=== PATIENT | female | born 1965 | race Caucasian/White ===

== ENCOUNTER → 2016-12-12 | Outpatient (CLI) | payer OTHER ==
--- NOTE | 2016-12-12 18:04 | XR ---
EXAMINATION TYPE: XR lumbar spine with bend/flex DATE OF EXAM: 12/12/2016 5:58 PM COMPARISON: 02/21/2016 HISTORY: Back pain TECHNIQUE: 7 views FINDINGS: There is a mild lumbar levoscoliosis. There are rods and screws fusing posteriorly the lumb ar spine at L4-5. There is a L4-5 disc prosthesis. There is narrowing at L4-5 and L5-S1 disc space. T here is also mild narrowing in the other lumbar disc spaces. There is no compression fracture. The sa croiliac joints appear normal. IMPRESSION: No fracture. There is a lumbar levoscoliosis that is worse than last exam. Multilevel spondylosis.
== END | disposition home or self-care (01) ==
LOC: RADXRMAIN 17:07
PROVIDERS: ATTEND Neurological Surgery
DX: M47.816 Spondylosis without myelopathy or radiculopathy, lumbar region (principal); M41.86 Other forms of scoliosis, lumbar region
CPT/HCPCS: 72114

== ENCOUNTER → 2017-01-23 | Outpatient (CLI) | payer OTHER ==
--- NOTE | 2017-01-23 15:11 | CT ---
EXAMINATION TYPE: CT chest wo con DATE OF EXAM: 01/23/2017 2:56 PM COMPARISON: 07/07/2016 and 03/05/2016 HISTORY: 51-year-old female has no complaints at time of study. Follow up study for known lung nodul e. Abnormal chest x-ray. TECHNIQUE: Contiguous axial scanning of the chest without IV contrast. Coronal and sagittal reconstru ctions performed. CT DLP: 598 mGycm Automated exposure control for dose reduction was used. FINDINGS: Heart is normal size with trace anterior pericardial thickening/fluid. Minimal coronary vessel calcif ications are present. The aorta is normal caliber with conventional arch vessel branching anatomy and minimal atherosclerot ic arch calcifications. No thoracic lymphadenopathy. Anterior mediastinal soft tissue measures 2.9 cm, unchanged from 03/05/2016 stability suggests a benig n etiology such as thymic hyperplasia. There is mild centrilobular emphysema without consolidation or pleural effusion. A 7 mm posterior left midlung pulmonary nodule within the lower lobe remains unchanged from 03/05/2016 . Visualized upper abdomen shows no gross abnormality. No osseous destructive process. IMPRESSION: 1. COPD WITH MILD EMPHYSEMA. 2. A 7 MM POSTERIOR LEFT MIDLUNG PULMONARY NODULE IS STABLE FROM 03/05/2016. ADDITIONAL ONE-YEAR FOLLO W-UP CAN DOCUMENT 2 YEARS OF STABILITY SUPPORTING A BENIGN ETIOLOGY. 3. STABLE 2.9 CM SOFT TISSUE IN THE ANTERIOR MEDIASTINUM. STABILITY SUGGESTS A BENIGN PROCESS SUCH THYMIC HYPERPLASIA. CLINICALLY CORRELATE.
== END | disposition home or self-care (01) ==
LOC: RADCTMAIN 14:36
PROVIDERS: ATTEND Internal Medicine Critical Care Medicine
DX: R91.1 Solitary pulmonary nodule (principal); J43.9 Emphysema, unspecified
CPT/HCPCS: 71250

== ENCOUNTER → 2017-07-23 | Outpatient (CLI) | payer OTHER ==
--- NOTE | 2017-07-24 08:23 | CT ---
EXAMINATION TYPE: CT lumbar spine wo con DATE OF EXAM: 07/23/2017 COMPARISON: NONE HISTORY: Lower back pain with bilateral leg numbness. CT DLP: 964.8 mGycm Automated exposure control for dose reduction was used. FINDINGS: There are 5 lumbar type vertebra identified. Lumbar spine shows a levoconvex scoliosis centered at L3 level. Straightening of spine is seen on sagittal images. No acute fracture dislocation is seen. The re is posterior fusion hardware seen bilaterally at L4-L5 level. There is artificial disc material at L4-L5 level. There is disc space narrowing which is advanced left aspect with sclerosis and left lat eral moderate spurring and vacuum disc phenomenon at the L5-S1 level. There is mild to moderate disc space narrowing involving the right L3-L4 level with mild right lateral spurring. Vertebral body heig hts and disc space heights otherwise are fairly well-maintained with mild to moderate anterior spurri ng L2-L3 level seen. Spinal canal is grossly preserved on sagittal images. Review of axial images shows the T12-L1 and L1-L2 levels to appear within normal limits. Axial images at L2-L3 level show mild facet degenerative changes bilaterally. There is mild broad dis c bulge. There is mild effacement of the anterior thecal sac. Bilateral neural foramina are patent. Axial images at L3-L4 level show moderate facet degenerative changes bilaterally. There is broad-base d disc bulge mildly effacing anterior thecal sac. There is mild right greater than left anterior infe rior neural foraminal narrowing at this level identified. Axial images at L4-L5 level show left-sided laminectomy defect. There is posterior fusion hardware an d artificial disc material identified. Spinal canal is grossly preserved, there is streak artifact fr om material noted making evaluation suboptimal. Neural foramina are felt grossly patent on sagittal i mages. Axial images at L5-S1 level show moderate facet degenerative changes bilaterally. There is broad disc bulge minimally effacing anterior thecal sac. There is left-sided spur disc complex causing moderate left-sided neural foraminal narrowing with encroachment on left L5 nerve felt present seen best on s agittal image 35. The right-sided neural foramen is patent. There is asymmetric slightly larger lobulated left kidney. There is calcification along course of spl enic artery. There is mild to moderate calcified plaque in the distal abdominal aorta which is somewh at small caliber distally with more moderate to severe calcified plaque extending into right common i liac artery. IMPRESSION: POSTSURGICAL CHANGE L4-L5 LEVEL. THERE IS LEVOCONVEX SCOLIOTIC CURVATURE. THERE IS MULTIL EVEL DEGENERATIVE CHANGE PRESENT DETAILED ABOVE WITH ATTENTION TO L5-S1 LEVEL THERE APPEARS TO BE FORAMINAL SPUR DISC COMPLEX EFFACING LEFT L5 NERVE. CLINICAL CORRELATION ADVISED.
== END | disposition home or self-care (01) ==
LOC: RADCTMAIN 16:00
PROVIDERS: ATTEND Psychiatry & Neurology Neurology
DX: M41.86 Other forms of scoliosis, lumbar region (principal); M47.817 Spondylosis without myelopathy or radiculopathy, lumbosacral region; Z91.041 Radiographic dye allergy status
CPT/HCPCS: 72131

== ENCOUNTER → 2017-08-25 | Outpatient (CLI) | payer OTHER ==
--- NOTE | 2017-08-25 15:36 | US ---
EXAMINATION TYPE: US kidneys/renal and bladder DATE OF EXAM: 08/25/2017 COMPARISON: CT lumbar spine July 23, 2017 CLINICAL HISTORY: R93.7 Abn findings on diagnostic imaging. Recent abnormal CT results EXAM MEASUREMENTS: Right Kidney: 10.3 x 4.7 x 5.2 cm Left Kidney: 12.2 x 4.7 x 4.0 cm Right Kidney: no hydro or masses seen, inferior pole limited by overlying bowel gas Left Kidney: measuring larger than right kidney, lobulated contour, no hydro or masses seen Bladder: wnl Bilateral Jets seen: yes There is no evidence for hydronephrosis at this point in time. No nephrolithiasis is seen. No jihan s are identified. The urinary bladder is anechoic. Bilateral ureteral jets are seen. IMPRESSION: Asymmetric increased size to left kidney is redemonstrated. Renal sizes however are within normal morin its bilaterally.
== END ==
LOC: RADUSWWP 14:49
PROVIDERS: ATTEND Family Medicine
DX: R93.7 Abnormal findings on diagnostic imaging of other parts of musculoskeletal system (principal)
CPT/HCPCS: 76770

== ENCOUNTER → 2017-09-22 | Outpatient (CLI) | payer OTHER ==
--- NOTE | 2017-09-22 14:16 | WWHP ---
[facility] - HISTORY AND PHYSICAL DATE OF SERVICE: 09/22/2017 CHIEF COMPLAINT: The patient is here for her routine gynecologic exam and mammogram. HPI: This is a 52-year-old G6, P5-0-1-5 with an LMP of 2011. The patient is without gynecologic complaints and denies any postmenopausal bleeding. PAST MEDICAL HISTORY: Chronic back problems, chronic hypertension, elevated cholesterol. MEDICATIONS: 1. Amlodipine 10 mg daily. 2. Lisinopril 10 mg daily. 3. Atorvastatin 10 mg daily. 4. Gabapentin 300 mg t.i.d. 5. Zyban 75 mg b.i.d. 6. Ibuprofen 800 mg t.i.d. p.r.n. 7. [place] 10 mg b.i.d. p.r.n. ALLERGIES: To IVP IODINE which caused hives. PAST SURGICAL HISTORY: Left breast biopsy in 1978, left breast aspiration in the past, colonoscopy in 2015, and a polyp was removed which was benign and back fusion surgery in 2015. PAST [employer] RE[employer] PERSON HISTORY: She has no history of STDs and has been menopausal since 2011. SOCIAL HISTORY: She quit smoking but did restart again this year and has been smoking about a 1/2 pack of cigarettes per day. She has about 18 alcohol-containing drinks per week and occasionally uses marijuana. She denies any other drug use. She has been with her boyfriend since 2011 and does live with him. She is currently unemployed. FAMILY HISTORY: Brother had lung cancer. Father had an GA. REVIEW OF SYSTEMS: She has gained about 40 pounds since last year. She denies cardiac or GI problems. RESPIRATORY: She states she can get slightly short of breath with exertion and she has had a workup for this. PHYSICAL EXAM: Blood pressure 153/87, height 5 feet 6 inches, weight 204 pounds. BMI 33. Temperature 97.1, pulse 71. This is a well-developed, well-nourished, white female, who is alert and oriented x3, in no acute distress. HEENT is within normal limits. NECK: Supple without mass or thyromegaly. CHEST AND LUNGS: Clear to auscultation. HEART: Regular rate and rhythm. Breasts are without mass or discharge. Axillary exam is negative for adenopathy. BACK: Negative for CVA tenderness. ABDOMEN: Soft, nontender, without palpable masses. PELVIC EXAM: External genitalia reveals mild atrophy without lesions. Cervix and vagina reveals mild atrophy without lesions. There is no evidence of prolapse. The uterus is mid position, nongravid size and nontender. There are no palpable adnexal masses or tenderness. Rectovaginal exam is negative for mass or tenderness and is negative for occult blood. EXTREMITIES: Nontender. IMPRESSION: 1. A 52-year-old menopausal female with normal gynecologic exam. 2. Elevated blood pressure with history of chronic hypertension. PLAN: 1. Pap smear was deferred since she had a normal one last year. 2. Self breast examination was discussed. 3. Mammogram will be done today. 4. We have discussed her elevated blood pressure. I have recommended she check her own blood pressure at home since she does have a blood pressure cuff and I have recommended she follow with Dr. Whitney for her blood pressure elevations. 5. Osteoporosis prevention was discussed. 6. She will return in 1 year. MMODL / IJN: [id number] /
--- NOTE | 2017-09-24 08:03 | MM ---
Reason for exam: screening (asymptomatic). Last mammogram was performed 11 months ago. History: Patient is postmenopausal. Benign US breast aspiration single RT of the right breast, March 21, 2016. Physical Findings: A clinical breast exam by your physician is recommended on an annual basis and results should be correlated with mammographic findings. MG Screening Mammo w CAD Bilateral CC and MLO view(s) were taken. Prior study comparison: October 17, 2016, right breast MG diagnostic mammo RT w CAD. March 11, 2016, right breast MG work up mamm w CAD RT. There are scattered fibroglandular densities. Stable nodule upper outer right breast. No significant changes when compared with prior studies. ASSESSMENT: Benign, BI-RAD 2 RECOMMENDATION: Routine screening mammogram of both breasts in 1 year.
== END | disposition home or self-care (01) ==
LOC: WWCWWP 11:07
PROVIDERS: ATTEND Obstetrics & Gynecology
DX: Z12.31 Encounter for screening mammogram for malignant neoplasm of breast (principal)

== ENCOUNTER → 2018-02-03 | Outpatient (CLI) | payer OTHER ==
--- NOTE | 2018-02-03 17:13 | CT ---
EXAMINATION TYPE: CT chest w con DATE OF EXAM: 02/03/2018 COMPARISON: Chest CT March 25, 2017 and older exam March 05, 2016. HISTORY: Pulmonary nodule progress study. CT DLP: 718 mGycm. Automated Exposure Control for Dose Reduction was Utilized. TECHNIQUE: CT scan of the thorax is performed following with IV Contrast, patient injected with 100 mL of Omnipaque 300. FINDINGS: LUNGS: Moderate underlying emphysematous change is redemonstrated. A 6 x 6 mm nodule superior aspect of left lower lobe is unchanged from last 2 studies. No new greater than 5 mm nodules or masses are p resent. No pleural effusion or pneumothorax is seen bilaterally. Tracheobronchial tree is patent. MEDIASTINUM: There are no new greater than 1 cm hilar or mediastinal lymph nodes. Anterior superior m ediastinal lesion measures 1.8 x 1.1 cm immediately anterior to the ascending aorta axial image 22, t his is diminished in size from last 2 studies suggesting benign etiology or resolving thymic hyperpla gabriella. No cardiomegaly or pericardial effusion is seen. OTHER: A few small sclerotic foci T11 level are stable. IMPRESSION: Stable 6 mm nodule superior aspect left lower lobe. Documentation of 2 years stability es sentially excludes neoplasm. No new suspicious nodules or masses identified.
== END | disposition home or self-care (01) ==
LOC: RADCTMAIN 15:38
PROVIDERS: ATTEND Internal Medicine Critical Care Medicine
DX: R91.1 Solitary pulmonary nodule (principal); Z91.041 Radiographic dye allergy status
CPT/HCPCS: 71260; Q9967

== ENCOUNTER → 2019-10-25 | Outpatient (CLI) | payer OTHER ==
--- NOTE | 2019-10-25 16:46 | CT ---
EXAMINATION TYPE: CT lumbar spine wo con DATE OF EXAM: 10/25/2019 3:57 PM COMPARISON: CT lumbar spine of 07/23/2017 HISTORY: Lower back pain followup CT DLP: 1575 mGycm Automated exposure control for dose reduction was used. TECHNIQUE: Unenhanced CT of the lumbar spine was performed. Bone and soft tissue window settings are submitted as well as coronal and sagittal reconstructions. FINDINGS: There is a levoscoliosis of the lumbar spine is mild. Vertebral body heights are maintained as well as alignment. Surgical changes seen of L4-L5 with intervertebral disc age, pedicular screws and fixation rods. Vacuum disc disease is seen at L5-S1. L1-L2: Normal disc space height. No disc herniation protrusion or central stenosis. No facet joint arthropathy. No evidence for foraminal encroachment. L2-L3: Left eccentric broad-based disc bulge is new from the prior resulting in very mild left neural foraminal narrowing. No spinal canal stenosis or right neural foraminal narrowing. L3-L4: Facet arthropathy and broad-based disc bulge is seen with mild spinal canal stenosis and mild right neural foraminal narrowing. Left neural foramen is patent. L4-L5: Postsurgical change obscures visualization at this level. Nondiagnostic evaluation. No gross e vidence of neural foraminal narrowing. Left-sided laminectomy defect is seen. L5-S1: Facet arthropathy is present as well as a broad-based disc bulge resulting in mild bilateral n eural foraminal narrowing without spinal canal stenosis. IMPRESSION: 1. Mild progression of degenerative disc disease in comparison to the prior exam of 2017. Postoperati ve changes and alignment are stable. 2. Mild spinal canal stenosis remains at L3-L4 secondary to broad-based disc bulge and facet arthropa thy. 3. Levoscoliosis and moderate degenerative disc disease of the lumbar spine remain.
== END | disposition home or self-care (01) ==
LOC: RADCTMAIN 15:38
PROVIDERS: ATTEND Psychiatry & Neurology Neurology
DX: M48.061 Spinal stenosis, lumbar region without neurogenic claudication (principal); M51.36 Other intervertebral disc degeneration, lumbar region; M46.96 Unspecified inflammatory spondylopathy, lumbar region; M41.86 Other forms of scoliosis, lumbar region; Z98.890 Other specified postprocedural states
CPT/HCPCS: 72131

== ENCOUNTER → 2020-11-06 | Outpatient (CLI) | payer OTHER ==
--- NOTE | 2020-11-06 10:32 | MM ---
Reason for exam: clinical finding. Last mammogram was performed 3 years and 1 month ago. History: Patient is postmenopausal. Benign US breast aspiration single RT of the right breast, March 21, 2016. Physical Findings: Nurse did not find any significant physical abnormalities on exam. MG Diagnostic Mammo w CAD MARIELY Bilateral CC and MLO view(s) were taken. Prior study comparison: September 22, 2017, bilateral MG screening mammo w CAD. October 17, 2016, right breast MG diagnostic mammo RT w CAD. The breast tissue is almost entirely fat. No significant new findings when compared with previous films. These results were verbally communicated with the patient and result sheet given to the patient on 11/06/20. ASSESSMENT: Benign, BI-RAD 2 RECOMMENDATION: Routine screening mammogram of both breasts in 1 year.
--- NOTE | 2020-11-06 10:34 | USB ---
Reason for exam: clinical finding. History: Patient is postmenopausal. Benign US breast aspiration single RT of the right breast, March 21, 2016. US Breast LT Left complete breast ultrasound includes all four quadrants, the retroareolar region and axilla. Finding demonstrates no cystic or solid lesion seen. These results were verbally communicated with the patient and result sheet given to the patient on 11/06/20. ASSESSMENT: Negative, BI-RAD 1 RECOMMENDATION: Routine screening mammogram of both breasts in 1 year. Manage patient on a clinical basis.
== END | disposition home or self-care (01) ==
LOC: RADMAMWWP 07:01
PROVIDERS: ATTEND Family Medicine
DX: N64.4 Mastodynia (principal); I10 Essential (primary) hypertension
CPT/HCPCS: 77066